=== PATIENT | female | born 1980 | race Hispanic/Latino ===

== ENCOUNTER 2016-12-31 08:59 | Emergency (ER) | payer SELFPAY ==
[2016-12-31 10:19] LABS: Hematocrit 38.3 % (36.0-47.0); Red Blood Cell (RBC) Count 4.82 mill/uL (4.20-5.40); White Blood Cell (WBC) Count 9.4 thou/uL (4.8-10.8)
[2016-12-31 10:20] LABS: %Lymphocytes 8.4 % (21.0-51.0); %Monocytes 4.5 % (0.0-10.0); Mean Platelet Volume 7.9 fL (7.4-10.4)
[2016-12-31 10:21] LABS: %Basophils 0.4 % (0.0-1.0); %Eosinophils 0.2 % (0.0-10.0)
[2016-12-31 10:22] LABS: #Lymphocytes 0.8 thou/uL (1.20-3.40); #Neutrophils 8.2 thou/uL (1.40-6.50)
[2016-12-31 10:23] LABS: #Eosinphils 0.2 thou/uL (0.0-0.7); #Monocytes 0.4 thou/uL (0.11-0.59)
[2016-12-31 10:33] LABS: AST (SGOT) 24 U/L (5-34); Alkaline Phosphatase 87 U/L (40-150); BUN (Urea Nitrogen) 8 mg/dL (7.0-18.7); Bilirubin, Total 0.5 mg/dL (0.2-1.2); Calc. Creatinine Clearance 0 mL/min (70-130); Calcium 8.7 mg/dL (7.8-10.44); Carbon Dioxide 18 mmol/L (22-29); Chloride 108 mmol/L (98-107); Estimated GFR-MDRD 72; Globulin 3.2 g/dL (2.4-3.5)
[2016-12-31 10:34] LABS: ALT (SGPT) 35 U/L (8-55); Lipase 24 U/L (8-78)
[2016-12-31 10:35] LABS: Anion Gap 14 mmol/L (10-20)
[2016-12-31 10:41] LABS: Band 10 % (5-11); Neutrophil 74 % (42-75)
== END 2016-12-31 14:33 | disposition home or self-care (01) ==
LOC: SCSER 08:59
DX: A04.5 Campylobacter enteritis (principal); E03.9 Hypothyroidism, unspecified; I10 Essential (primary) hypertension; F41.9 Anxiety disorder, unspecified; F32.9 Major depressive disorder, single episode, unspecified; F17.210 Nicotine dependence, cigarettes, uncomplicated
CPT/HCPCS: 36415; 80053; 83630; 83690; 85025; 87015; 87045; 87046; 87328; 87329; 87449; 87899; 96360; 96361

== ENCOUNTER 2017-12-05 19:32 | Observation (INO) | payer SELFPAY ==
[2017-12-05 20:04] LABS: #Eosinphils 0.2 thou/uL (0.0-0.7); #Lymphocytes 1.4 thou/uL (1.20-3.40); #Monocytes 0.4 thou/uL (0.11-0.59); #Neutrophils 3.7 thou/uL (1.40-6.50); %Basophils 0.8 % (0.0-1.0); %Eosinophils 3.1 % (0.0-10.0); %Monocytes 7.1 % (0.0-10.0); Hemoglobin 12.8 g/dL (12.0-16.0); Mean Corpuscular HGB CONC 32.7 g/dL (32.0-36.0); Mean Corpuscular Hemoglobin 25.4 pg (27.0-31.0); Mean Corpuscular Volume 77.7 fL (78.0-98.0); Mean Platelet Volume 9.6 fL (7.4-10.4); Platelet Count 234 thou/uL (130-400); RBC Distribution Width 12.6 % (11.5-14.5); Red Blood Cell (RBC) Count 5.03 mill/uL (4.20-5.40); White Blood Cell (WBC) Count 5.7 thou/uL (4.8-10.8)
[2017-12-05 20:20] LABS: ALT (SGPT) 123 U/L (8-55); AST (SGOT) 110 U/L (5-34); Albumin 4.3 g/dL (3.5-5.0); Alkaline Phosphatase 150 U/L (40-150); Anion Gap 18 mmol/L (10-20); BUN (Urea Nitrogen) 13 mg/dL (7.0-18.7); Bilirubin, Total 0.4 mg/dL (0.2-1.2); Calc. Creatinine Clearance 0 mL/min (70-130); Calcium 9.9 mg/dL (7.8-10.44); Carbon Dioxide 18 mmol/L (22-29); Chloride 102 mmol/L (98-107); Estimated GFR-MDRD 74; Globulin 3.3 g/dL (2.4-3.5); Glucose 490 mg/dL (70-105); Potassium 4.1 mmol/L (3.5-5.1); Protein, Total 7.6 g/dL (6.0-8.3); Sodium 134 mmol/L (136-145)
[2017-12-05 20:21] LABS: CKMB 0.7 ng/mL (0-6.6); Troponin I Less than 0.010 ng/mL (< 0.028)
--- NOTE | 2017-12-05 20:52 | RAD ---
PA AND LATERAL CHEST: History: Chest pain. FINDINGS: Heart size and mediastinum are within normal limits. The lungs are clear of infiltrates. There are ar thritic changes of the spine. IMPRESSION: No active intrathoracic disease. POS: [facility]
[2017-12-05 20:53] LABS: Bilirubin Negative (Negative); Blood, Urine Trace (Negative); Clarity Clear (Clear); Glucose, Urine (Dipstick) >=1000 mg/dL (Negative); Leukocyte Negative (Negative); Nitrite Negative (Negative); Protein, Urine (Dipstick) Negative (Neg-Trace); Urobilinogen 0.2 mg/dL (0.2-1.0); pH, Urine 5.5 (5.0-9.0)
[2017-12-05 20:55] LABS: RBC/HPF 0-3 HPF (0-3); Squamous Epithelial 0-3 HPF (0-3); Yeast-All Forms 2+ HPF (None Seen)
[2017-12-05 20:56] LABS: Bacteria/HPF 1+ HPF (None Seen)
[2017-12-05] MEDS ORDERED: Aspirin 325 MG TAB ONE (21:43)
[2017-12-05] MEDS ORDERED: Fluconazole 100 MG TAB ONE (21:43)
[2017-12-05] MEDS ORDERED: hydrALAZINE 20 MG/ML VIAL ONE (21:43)
[2017-12-05] MEDS ORDERED: Insulin Regular 300 UNITS/3 ML VIAL ONE (22:02)
[2017-12-05 23:29] LABS: Troponin I Less than 0.010 ng/mL (< 0.028)
[2017-12-05] MEDS ORDERED: Ondansetron ODT 4 MG TAB SL PRN (23:48)
[2017-12-05] MEDS ORDERED: Ondansetron PF 4 MG/2 ML Vial IVP PRN (23:48)
[2017-12-05] MEDS ORDERED: Acetaminophen 325 MG TAB PO PRN (23:48)
[2017-12-06 00:15] VITALS: BMI 48.1
[2017-12-06 02:33] LABS: Troponin I Less than 0.010 ng/mL (< 0.028)
[2017-12-06] MEDS ORDERED: Zolpidem Tartrate 5 MG TAB PO PRN (07:02)
[2017-12-06] MEDS ORDERED: Calcium Carbonate 500 MG ChewTAB PO PRN (07:02)
[2017-12-06] MEDS ORDERED: Loratadine 10 MG TAB PO PRN (07:02)
[2017-12-06] MEDS ORDERED: Diabetic Tussin 200 MG/10 ML UDCUP PO PRN (07:02)
[2017-12-06] MEDS ORDERED: Ondansetron PF 4 MG/2 ML Vial IVP PRN (07:02)
[2017-12-06] MEDS ORDERED: Insulin Regular 300 UNITS/3 ML VIAL SC PRN (07:02)
[2017-12-06] MEDS ORDERED: Senokot 8.6 MG TAB PO PRN (07:02)
[2017-12-06] MEDS ORDERED: Chloraseptic Spray 180 ml Bottle PO PRN (07:02)
[2017-12-06] MEDS ORDERED: Sodium Chloride 0.65% Nasal 44 ML BOT EA NARE PRN (07:02)
[2017-12-06] MEDS ORDERED: HYDROcodone/Acetaminophen 5/325 mg Tablet PO PRN (07:02)
[2017-12-06] MEDS ORDERED: Artificial Tears 18 DROP/0.9 ML EA EYE PRN (07:02)
[2017-12-06] MEDS ORDERED: Nitroglycerin 0.4 MG TAB (25 Tab Bottle) PO PRN (07:02)
[2017-12-06] MEDS ORDERED: Milk Of Magnesia 30 ML UDCUP PO PRN (07:02)
[2017-12-06] MEDS ORDERED: Loperamide HCl 2 MG CAP PO PRN (07:02)
[2017-12-06] MEDS ORDERED: Dextrose 50% Abboject 50 ML SYRINGE SLOW IVP PRN (07:02)
[2017-12-06] MEDS ORDERED: Ondansetron ODT 4 MG TAB PO PRN (07:02)
[2017-12-06] MEDS ORDERED: Eucerin (Mineral Oil/Petrolatum,White) 30 gm Jar TOP PRN (07:02)
[2017-12-06] MEDS ORDERED: Dextrose 5% in Water 1,000 ML IV PRN (07:02)
[2017-12-06] MEDS ORDERED: hydrALAZINE 20 MG/ML VIAL SLOW IVP PRN (07:02)
[2017-12-06 07:42] LABS: Hemoglobin A1c 10.8 % (4.0-6.0)
[2017-12-06 07:58] LABS: ALT (SGPT) 101 U/L (8-55); AST (SGOT) 88 U/L (5-34); Albumin 3.9 g/dL (3.5-5.0); Alkaline Phosphatase 132 U/L (40-150); Anion Gap 11 mmol/L (10-20); BUN (Urea Nitrogen) 8 mg/dL (7.0-18.7); Bilirubin, Total 0.6 mg/dL (0.2-1.2); Calc. Creatinine Clearance 233 mL/min (70-130); Calcium 8.5 mg/dL (7.8-10.44); Carbon Dioxide 21 mmol/L (22-29); Cardiac Risk 4.9 (Less than 4.5); Chloride 106 mmol/L (98-107); Cholesterol 102 mg/dl (< 200 Desired); Estimated GFR-MDRD Greater than 90; Globulin 2.8 g/dL (2.4-3.5); Glucose 309 mg/dL (70-105); HDL Cholesterol 21 mg/dL (>60 Neg Risk); LDL Cholesterol, Calculated 58 mg/dL; Protein, Total 6.7 g/dL (6.0-8.3); Sodium 134 mmol/L (136-145); Triglycerides 115 mg/dL (Less than 150)
[2017-12-06 08:23] LABS: HBCM Index 0.11 S/CO (0-0.79); HBSAg Index 0.24 S/CO (0-0.99); Hep A IgM AB Non-Reactive (NonReactive); Hep A IgM S/CO 0.07 S/CO (0-0.79); Hep B Surf Ag Non-Reactive S/CO (NonReactive); Hep C IgG Ab Non-Reactive (NonReactive); Hepatitis B Core IGM Abs Non-Reactive (NonReactive)
[2017-12-06] MEDS: Aspirin 325 MG TAB PO SCH (08:28)
[2017-12-06] MEDS: glyBURIDE 5 MG TAB PO SCH (08:28)
[2017-12-06] MEDS: Acetaminophen 325 MG TAB PO PRN ×2 (08:28→16:32)
[2017-12-06] MEDS: Famotidine 20 MG TAB PO SCH ×2 (08:28→19:59)
--- NOTE | 2017-12-06 11:42 | HP ---
PRIMARY CARE PHYSICIAN: [facility]. REASON FOR ADMISSION: Chest pain, new onset diabetes type 2. HISTORY OF PRESENT ILLNESS: A 37-year-old female who has morbid obesity, hypertension, and hypothyroidism. She is not on any specific medication at this point. She follows local [facility] once a year. She was told that her blood pressure was going lower side and that is why she was sto pped blood pressure medication and her thyroid was normal and that is why she was also told to stop t hyroid medication. She does not have any previous history of diabetes. She does have family history of diabetes. She was having polyuria, polydipsia. For the last 1 week, she was experiencing recurr ent chest pain which was left-sided in location without any relation of food, respiration, or activit y. She denies any associated nausea or vomiting. Her pain was intense last night which was left-yahaira ed and radiated to left arm. She came to the emergency room, she was found with hyperglycemia. She also had abnormal LFTs. She was hypertensive. She was admitted to telemetry floor for observation t o rule out acute coronary syndrome and hyperglycemia management. REVIEW OF SYSTEMS: Please see my HPI for pertinent positive and negative. All other review of syste m reviewed and negative except as mentioned in the HPI. Constitutional: Weight loss or gain, ability to conduct usual activities. Skin: Rash, itching. Eyes: Double vision, pain. ENT/Mouth: Nose bleeding, neck stiffness, pain, tenderness. Cardiovascular: Palpitations, dyspnea on exertion, orthopnea. Respiratory: Shortness of breath, wheezing, cough, hemoptysis, fever or night sweats. Gastrointestinal: Poor appetite, abdominal pain, heartburn, nausea, vomiting, constipation, or diarrhea. Genitourinary: Urgency, frequency, dysuria, nocturia. Musculoskeletal: Pain, swelling. Neurologic/Psychiatric: Anxiety, depression. Allergy/Immunologic: Skin rash, bleeding tendency. PAST MEDICAL HISTORY: No medication noncompliance, hypothyroidism, hypertension, morbid obesity. PAST SURGICAL HISTORY: Tubal ligation. PAST PSYCHIATRIC HISTORY: Anxiety and depression. SOCIAL HISTORY: The patient drinks socially twice a month. She smokes about half pack per day. She abuses marijuana periodically. FAMILY HISTORY: Positive for coronary artery disease to mother who had bypass surgery. Positive for diabetes. ALLERGIES: PENICILLIN. CURRENT HOME MEDICATIONS: The patient is not on any specific medication at this point. EMERGENCY ROOM COURSE: The patient was given Novolin R 7 units, Diflucan 200 mg, hydralazine 100 mg, aspirin 325 mg, and IV fluid. PHYSICAL EXAMINATION: VITAL SIGNS: On arrival, blood pressure 172/106, pulse 95, respiratory rate 18, temperature 97.9, sa turation 98% on room air, weight 124 kilograms. GENERAL: The patient is currently alert, oriented, no acute distress. HEAD: Normocephalic, atraumatic. EYES: Pupils round, reactive to light. Extraocular muscle intact. ENT: Oropharynx within normal limits. Moist mucous membranes, no oral lesion, no pharyngeal erythem a, no exudate. NECK: Supple, no JVD, no thyromegaly, no carotid bruit. LUNGS: Clear to auscultation without any rhonchi or rales. CARDIAC: S1, S2 regular without any murmur. ABDOMEN: Morbid obesity limiting examination, but no peritoneal sign, no guarding, no rigidity, no r ebound, no suprapubic tenderness. BACK: Unremarkable, no CVA tenderness. EXTREMITIES: Upper extremity: Passive movement of all joints are normal. Lower extremities: No ed sonido. Good distal pulsation. SKIN: No skin rash. HEMATOLOGICAL: No lymphadenopathy. NEUROLOGIC: Nonfocal examination. SIGNIFICANT LABORATORY DATA: EKG showing normal sinus rhythm, nonspecific ST-T changes. CBC: WBC 5 .7, hemoglobin 12.8, platelets 234. BMP: Sodium 134, potassium 4.1, chloride 102, carbon dioxide 18 , BUN 13, creatinine 0.86, glucose 490, calcium 9.9. LFT: AST 110, ALT 123, alkaline phosphatase wa s 150, albumin 4.3. Cardiac enzymes negative x3. Hemoglobin A1c 10.8. Lipid profile: Triglyceride 115, cholesterol 102, LDL 58, HDL 21. TSH 5.24. Urinalysis: Glucosuria, ketonuria, 2+ yeast and 1 + bacteria. Hepatitis profile negative. ASSESSMENT AND PLAN: 1. Chest pain. The patient's chest pain description is atypical. She has various risk factors for coronary artery disease including new onset diabetes, untreated hypertension, morbid obesity, and fam amalia history as well as tobacco abuse disorder. Cardiac enzymes negative. EKG is nonspecific. The p atient will need more investigation for risk stratification and that is why we will do exercise Cardi olite stress test. We will continue the aspirin 325 mg p.o. daily. 2. New onset diabetes type 2. We will start metformin 1000 mg twice daily, glyburide 5 mg p.o. jewels y. Diabetic diet education will be given. Dietitian will be consulted. 3. Urinary tract infection with candiduria. We will continue Diflucan 100 mg p.o. daily. We will f ollow up on urine culture result. 4. Hypertension. We will start lisinopril 10 mg p.o. daily. 5. Morbid obesity with BMI 48. Dietary education given, weight loss education given. Healthy lifes tyle measures discussed with the patient. 6. Abnormal liver function tests, likely due to fatty liver. Hepatitis profile is negative. 7. Hypothyroidism. We will start Synthroid 25 mcg p.o. daily. 8. Deep venous thrombosis prophylaxis not needed because we are expecting discharge in 24-48 hours. 9. Gastrointestinal prophylaxis, Pepcid 20 mg p.o. b.i.d. 10. Code status: The patient is FULL CODE. 11. Tobacco abuse disorder. Smoking cessation counseling given. Healthy lifestyle measures discuss ed with the patient. Disposition plan based on clinical course, likely within 24 hours. Plan of care discussed with the p atient and family member at bedside.
[2017-12-06] MEDS ORDERED: ADENOSINE 60 MG/20 ML VIAL ONE (12:14)
[2017-12-06] MEDS: metFORMIN 500 MG TAB PO SCH (16:28)
[2017-12-07] MEDS: Levothyroxine Sodium 25 MCG TAB PO SCH (05:49)
[2017-12-07] MEDS: Insulin Regular 300 UNITS/3 ML VIAL SC PRN ×3 (05:50→16:36)
[2017-12-07] MEDS: glyBURIDE 5 MG TAB PO SCH (09:53)
[2017-12-07] MEDS: Fluconazole 100 MG TAB PO SCH (09:53)
[2017-12-07] MEDS: Aspirin 325 MG TAB PO SCH (09:53)
[2017-12-07] MEDS: metFORMIN 500 MG TAB PO SCH (09:53)
[2017-12-07] MEDS: Lisinopril 10 MG TAB PO SCH (09:54)
[2017-12-07] MEDS: Famotidine 20 MG TAB PO SCH ×2 (09:54→20:52)
--- NOTE | 2017-12-07 10:17 | NM ---
NUCLEAR MEDICINE CARDIAC STRESS TEST WITH EJECTION FRACTION: HISTORY: Chest pain. Hypertension. Coronary artery disease. COMPARISON: None. TECHNIQUE: Stress and rest were performed after the intravenous administration of 30 and 33 millicuries of techn etium 99m sestamibi. FINDINGS: There is low grade lateral wall ischemia. No dyskinesia. Calculated ejection fraction is 60%. IMPRESSION: 1. Low grade lateral wall ischemia. 2. Ejection fraction 60%. POS: [facility]
--- NOTE | 2017-12-07 10:31 | PDOC.PN ---
- Subjective Encounter Start Date: 12/07/17 Encounter Start Time: 07:40 -: old records requested/rev Patient seen and examined. No new complaints. No overnight events - Objective Resuscitation Status: Resuscitation Status FULL:Full Resuscitation MAR Reviewed: Yes Vital Signs & Weight: Vital Signs (12 hours) Temp Pulse Resp BP Pulse Ox 12/07/17 09:05 98.4 F 88 20 169/107 H 97 12/07/17 02:52 98.3 F 80 20 185/103 H 97 Weight Weight 305 lb 3.2 oz I&O: 12/06/17 12/07/17 12/08/17 06:59 06:59 06:59 Intake Total 1412 Balance 1412 Result Diagrams: 12/05/17 19:57 12/06/17 07:28 Additional Labs: Accuchecks 12/07/17 12/06/17 12/06/17 05:44 20:16 16:35 POC Glucose 281 H 269 H 307 H 12/06/17 12:00 POC Glucose 207 H Radiology Reviewed by me: Yes (stress test is abnormal) EKG Reviewed by me: Yes (nsr) Phys Exam - Physical Examination Constitutional: NAD HEENT: PERRLA, moist MMs, sclera anicteric Neck: no JVD, supple Respiratory: no wheezing, no rales, no rhonchi Cardiovascular: RRR, no significant murmur, no rub Gastrointestinal: soft, non-tender, no distention, positive bowel sounds Musculoskeletal: no edema, pulses present Neurological: non-focal, normal sensation, moves all 4 limbs Lymphatic: no nodes Psychiatric: normal affect, A&O x 3 Skin: no rash, normal turgor Dx/Plan (1) Chest pain Code(s): R07.9 - CHEST PAIN, UNSPECIFIED Status: Acute (2) Abnormal stress test Status: Acute (3) New onset type 2 diabetes mellitus Code(s): E11.9 - TYPE 2 DIABETES MELLITUS WITHOUT COMPLICATIONS Status: Acute (4) Transaminitis Code(s): R74.0 - NONSPEC ELEV OF LEVELS OF TRANSAMNS & LACTIC ACID DEHYDRGNSE Status: Acute (5) Hypertension Code(s): I10 - ESSENTIAL (PRIMARY) HYPERTENSION Status: Chronic (6) Hypothyroidism Code(s): E03.9 - HYPOTHYROIDISM, UNSPECIFIED Status: Chronic (7) Morbid obesity with BMI of 45.0-49.9, adult Code(s): E66.01 - MORBID (SEVERE) OBESITY DUE TO EXCESS CALORIES; Z68.42 - BODY MASS INDEX (BMI) 45.0-49.9, ADULT Status: Chronic - Plan cont current plan of care, plan discussed w/ family * cardiology will be consulted for abnormal stress test * medication reviewed as below * symptomatic treatment * discussed with family and pt about test result. * change glyburide 5 mg po bid Review of Systems - Review of Systems ENT: negative: Ear Pain, Ear Discharge, Nose Pain, Nose Discharge, Nose Congestion, Mouth Pain, Mouth Swelling, Throat Pain, Throat Swelling, Other Respiratory: negative: Cough, Dry, Shortness of Breath, Hemoptysis, SOB with Excertion, Pleuritic Pain, Sputum, Wheezing Cardiovascular: negative: chest pain, palpitations, orthopnea, paroxysmal nocturnal dyspnea, edema, light headedness, other Gastrointestinal: negative: Nausea, Vomiting, Abdominal Pain, Diarrhea, Constipation, Melena, Hematochezia, Other Genitourinary: negative: Dysuria, Frequency, Incontinence, Hematuria, Retention , Other Musculoskeletal: negative: Neck Pain, Shoulder Pain, Arm Pain, Back Pain, Hand Pain, Leg Pain, Foot Pain, Other Skin: negative: Rash, Lesions, Humble, Bruising, Other - Medications/Allergies Allergies/Adverse Reactions: Allergies Allergy/AdvReac Type Severity Reaction Status Date / Time Penicillins AdvReac Mild Rash Verified 12/05/17 23:52 Medications: Current Medications Acetaminophen (Tylenol) 650 mg PO Q4H PRN PRN Reason: Headache/Fever or Mild Pain Last Admin: 12/06/17 16:32 Dose: 650 mg Hydrocodone Bitart/Acetaminophen ([place] 5/325) 1 tab PO Q4H PRN PRN Reason: Moderate Pain (4-6) Artificial Tears (Tears Naturale) 0 drop EA EYE PRN PRN PRN Reason: Dry Eyes Aspirin (Aspirin) 325 mg PO DAILY [facility] Last Admin: 12/07/17 09:53 Dose: 325 mg Calcium Carbonate (Tums) 1,000 mg PO Q4H PRN PRN Reason: Heartburn or Indigestion Dextrose/Water (Dextrose 50%) 25 gm SLOW IVP PRN PRN PRN Reason: Hypoglycemia Famotidine (Pepcid) 20 mg PO BID [facility] Last Admin: 12/07/17 09:54 Dose: 20 mg Fluconazole (Diflucan) 100 mg PO DAILY [facility] Last Admin: 12/07/17 09:53 Dose: 100 mg Glucagon (Glucagon) 1 mg IM PRN PRN PRN Reason: Hypoglycemia Glyburide (Diabeta) 5 mg PO QAM[facility] Last Admin: 12/07/17 09:53 Dose: 5 mg Guaifenesin (Robitussin Sf) 200 mg PO Q4H PRN PRN Reason: Cough Hydralazine HCl (Apresoline) 10 mg SLOW IVP Q4H PRN PRN Reason: Systolic BP > 180 Dextrose/Water (D5w) 1,000 mls @ 0 mls/hr IV .Q0M PRN PRN Reason: Hypoglycemia Insulin Human Regular (Humulin R) 0 units SC .AGGRESSIVE SLIDING PRN PRN Reason: Aggressive Sliding Scale Last Admin: 12/07/17 05:50 Dose: 9 unit Insulin Human Regular (Humulin R) 0 units SC .BEDTIME SLIDING SC PRN PRN Reason: Bedtime Correctional Scale Levothyroxine Sodium (Synthroid) 25 mcg PO 0600 [facility] Last Admin: 12/07/17 05:49 Dose: 25 mcg Lisinopril (Zestril) 10 mg PO DAILY [facility] Last Admin: 12/07/17 09:54 Dose: 10 mg Loperamide HCl (Imodium) 2 mg PO PRN PRN PRN Reason: Diarrhea/Loose Stools Loratadine (Claritin) 10 mg PO DAILYPRN PRN PRN Reason: Sinus Symptoms Magnesium Hydroxide (Milk Of Magnesium) 30 ml PO DAILYPRN PRN PRN Reason: Constipation Metformin HCl (Glucophage) 1,000 mg PO BID-[facility] Last Admin: 12/07/17 09:53 Dose: 1,000 mg Mineral Oil/White Petrolatum (Eucerin Cream) 0 gm TOP BIDPRN PRN PRN Reason: Dry Skin Nitroglycerin (Nitrostat) 0.4 mg PO Q5MIN PRN PRN Reason: Chest Pain Ondansetron HCl (Zofran Odt) 4 mg PO Q6H PRN PRN Reason: Nausea/Vomiting Ondansetron HCl (Zofran) 4 mg IVP Q6H PRN PRN Reason: Nausea/Vomiting Phenol (Chloraseptic [place] 180 Ml Bot) 0 ml PO PRN PRN PRN Reason: Sore Throat Senna (Senokot) 2 tab PO HSPRN PRN PRN Reason: Constipation Sodium Chloride ([place] Nasal [place] 0.65%) 0 ml EA NARE QIDPRN PRN PRN Reason: Nasal Congestion Zolpidem Tartrate (Ambien) 5 mg PO HSPRN PRN PRN Reason: Insomnia
[2017-12-07] MEDS ORDERED: Communication Order-Pharmacy FS SCH (12:00)
--- NOTE | 2017-12-07 14:56 | CON ---
DATE OF CONSULTATION: 12/07/2017 The patient is a 37-year-old woman, who presents for evaluation of left-sided chest discomfort. The patient states, approximately a month ago, she had left- sided chest discomfort, which radiated down her left arm and into her neck. This lasted for several hours. She did not seek medical attention. The patient has continued to have left-sided chest discomfort that usually lasts several minutes. The chest discomfort is always left side that occurs with and without exertion. The patient has cardiac risk factors including hypertension and a family history of coronary artery disease. PAST MEDICAL HISTORY: 1. Hypertension. 2. Thyroid disorder. 3. Obesity. PAST SURGICAL HISTORY: Tubal ligation. SOCIAL HISTORY: Former smoker. ALLERGIES: She is allergic to PENICILLIN. FAMILY HISTORY: Positive family history of heart disease. Mother had a myocardial infarction. MEDICATIONS: None. PHYSICAL EXAMINATION: GENERAL: This is an obese woman in no acute distress. VITAL SIGNS: Blood pressure is 169/107. NECK: Showed no jugular venous distention. LUNGS: Clear to auscultation. HEART: Regular rate and rhythm, normal S1 and S2. ABDOMEN: Markedly distended. EXTREMITIES: Show no edema. SKIN: Warm and dry. NEUROLOGIC EXAM: Nonfocal. VASCULAR: Radial pulses 2+. LABORATORY DATA: Sodium 134, potassium 4.0, chloride 106, bicarbonate 21, BUN 8 , creatinine is 0.72, glucose is 309. Her ALT was 101. Her troponin was less than 0.01. Her white blood cell count is 5.7, hemoglobin 12.9 grams, hematocrit 39.1, platelets are 234. Her EKG revealed her to have normal sinus rhythm with moderate voltage criteria for left ventricular hypertrophy. No acute ST-T-wave changes. IMPRESSION: 1. Chest pain suggestive of angina. 2. Abnormal stress test. 3. Hypertension. 4. Elevated liver function tests. 5. Morbid obesity. 6. History of tobacco abuse. This patient presents for evaluation of chest pain. He has an abnormal stress test with possible ischemia. I discussed the option of medical therapy versus an invasive evaluation. The patient strongly prefers to undergo a cardiac catheterization for definitive diagnosis. The risks involving cardiac catheterization include AK, bleeding, stroke, cardiac arrhythmia, and cardiac have been explained to the patient. The patient understands these risks and wishes to proceed. PLAN: Proceed with cardiac catheterization. KATHE
[2017-12-08] MEDS: Lisinopril 10 MG TAB PO SCH (04:03)
[2017-12-08] MEDS: glyBURIDE 5 MG TAB PO SCH (04:04)
[2017-12-08] MEDS: Fluconazole 100 MG TAB PO SCH (04:04)
[2017-12-08] MEDS: Aspirin 325 MG TAB PO SCH (04:04)
[2017-12-08] MEDS: Levothyroxine Sodium 25 MCG TAB PO SCH (04:04)
[2017-12-08] MEDS: Famotidine 20 MG TAB PO SCH (04:04)
[2017-12-08] MEDS ORDERED: glyBURIDE 5 MG TAB PO SCH (09:00)
[2017-12-08] MEDS ORDERED: Lidocaine 1% (PF) 30 ML VIAL ONE (09:08)
[2017-12-08] MEDS ORDERED: Verapamil 5 MG/2 ML VIAL ONE (09:08)
[2017-12-08] MEDS ORDERED: Heparin 10,000 UNITS/1 ML VIAL ONE (09:08)
[2017-12-08] MEDS ORDERED: Nitroglycerin 100MG/250ML BOT 250 ML ONE (09:08)
[2017-12-08] MEDS ORDERED: Midazolam HCl 2 mg/2 ml Vial ONE (09:48)
[2017-12-08] MEDS ORDERED: Fentanyl 100 MCG/2 ML VIAL ONE (09:48)
[2017-12-08] MEDS ORDERED: Iopamidol 370 76% 100 ML VIAL ONE (09:57)
[2017-12-08] MEDS: Insulin Regular 300 UNITS/3 ML VIAL SC PRN (10:50)
[2017-12-08 11:22] VITALS: BP 116/70; TEMP 97.8
--- NOTE | 2017-12-08 11:40 | DIS ---
PRIMARY CARE PHYSICIAN: [facility] call admission. DATE OF ADMISSION: 12/05/2017 DATE OF DISCHARGE: 12/08/2017 DISCHARGE DISPOSITION: Home. PRIMARY DISCHARGE DIAGNOSIS: 1. Chest pain, ruled out acute coronary syndrome. 2. Abnormal stress test, but negative cardiac cath. 3. New onset diabetes type 2. 4. Transaminitis due to fatty liver. SECONDARY DISCHARGE DIAGNOSES: Morbid obesity with a BMI of 47, hypothyroidism, hypertension, medica tion noncompliance. PRIMARY PROCEDURE/OPERATION: Cardiac catheterization which was normal. RADIOLOGICAL INVESTIGATION: Chest x-ray normal. Stress test was reported as reversible ischemia in lateral wall. SIGNIFICANT LABORATORY DATA: WBC 5.7, hemoglobin 12.8, platelet 234. Sodium 134, potassium 4.0, BUN 8, creatinine 0.72, calcium 8.5, AST 88, ALT 101, alkaline phosphatase is 132, albumin 3.9. TSH 5. 24, LDL 58. Hemoglobin A1c 10.8. Urinalysis suggestive of glucosuria. Hepatitis profile negative. Urine culture grew yeast. DISCHARGE MEDICATIONS: Pepcid 20 mg p.o. b.i.d., DiaBeta 5 mg p.o. b.i.d., Synthroid 25 mcg p.o. carolyn ly, Prinzide 10/12.5 one tablet p.o. daily, metformin 1000 mg p.o. b.i.d., Diflucan 100 mg p.o. daily for 7 days. CONTRAINDICATIONS: None. CODE STATUS: FULL CODE. INPATIENT CONSULTANTS: Dr. Okeefe was consulted for abnormal stress test. TEST RESULTS PENDING ON DISCHARGE: None. ALLERGIES: PENICILLIN. DISCHARGE PLAN: Post hospital, the patient will follow up with primary care physician. HOSPITAL COURSE: A 37-year-old female who was having polyuria, polydipsia and she was having recurre nt chest pain. She was admitted by me. Please see my HPI for further detail. In the emergency room , she was found with hyperglycemia. Her hemoglobin A1c turned out to be 10.8. She has new onset of diabetes type 2. She had abnormal LFTs and that is why we checked hepatitis profile that was normal, but this is related with metabolic syndrome from diabetes and morbid obesity and we are suspecting m ostly related with fatty liver. During this admission, we provided diabetes education and dietary ed ucation. Healthy lifestyle measures discussion was given. Weight loss education was given. The pat ient was not taking any medication for hypertension and hypothyroidism and that is why we prescribed all medication to her pharmacy. We started glyburide and metformin for diabetes. The patient needs to follow up with primary care physician for further adjustment of therapy. Diflucan was given for a yeast urinary tract infection. The patient is seen and examined at bedside today. She has negative review of systems. VITAL SIGNS: Today, temperature 97.4, pulse 74, respiratory rate 18, saturation 95%, blood pressure 131/77, weight 300 pounds. GENERAL: The patient is currently alert, awake, no obvious acute distress. HEAD: Normocephalic, atraumatic. EYES: Pupils round, reactive to light. Extraocular muscle intact. ENT: Oropharynx within normal limits. Moist mucous membranes. No oral lesion, no pharyngeal erythe ma, no exudate. NECK: Supple, no JVD, no thyromegaly, no carotid bruit. LUNGS: Clear to auscultation without any rhonchi or rales. CARDIAC: S1, S2 regular without any murmur. ABDOMEN: Soft and benign without any tenderness. EXTREMITIES: No edema. NEUROLOGIC: Nonfocal examination. Overall, this patient is medically stable for discharge. The patient had a stress test done which showed lateral wall ischemia and that is why we consulted Ca rdiology and Cardiology did cardiac cath and her cardiac catheterization was completely normal. The patient is only treated medically with a healthy lifestyle and above-mentioned medications. Medicati on compliance education was given. The patient is medically stable for discharge today.
[2017-12-08] MEDS ORDERED: Acetaminophen/Codeine 30-300mg Tablet PO PRN ×2 (12:00)
[2017-12-08] MEDS ORDERED: Sodium Chloride 0.9% 200 ML IV SCH (12:00)
[2017-12-08] MEDS ORDERED: traMADol HCl 50 MG TAB PO PRN (12:00)
[2017-12-08] MEDS ORDERED: Sodium Chloride 0.9% 1,000 ML IV SCH (12:15)
--- NOTE | 2017-12-13 08:33 | STRESS ---
Acquisition Time: 2017-12-06 12:54:14 Total Exercise Time: 00:04:00 Test Indications: CHEST PAIN Medications: Protocol: ADENOSINE Max HR: 122 BPM 67% of Pred: 182 BPM Max BP: 164/076 mmHG Max Work Load: 1.0 METS RESTING ECG: NORMAL SINUS RHYTHM AT 71 BPM SYMPTOMS: NONE NORMAL BP RESPONSE ECTOPY: NONE ECG STRESS: TRANSIENT T-WAVE INVERSION WITH ADENOSINE INFUSION INTERPRETATION: INDETERMINATE ECG/AWAIT NUCLEAR IMAGES FOR DEFINITIVE DIAGNOSIS Confirmed by ZEFERINO WARREN ([id number]) on 12/13/2017 8:32:24 AM Referred By: MD Jaylene CRENSHAW Confirmed By:ZEFERINO WARREN
== END 2017-12-08 15:34 | disposition home or self-care (01) ==
LOC: SCSER 19:32 → 2SW 21:45
PROVIDERS: ADMIT Hospitalist; ATTEND Hospitalist
PROC: 4A023N7 Measurement of Cardiac Sampling and Pressure, Left Heart, Percutaneous Approach (ICD-10-PCS; principal; 2017-12-08)
PROC: B2111ZZ Fluoroscopy of Multiple Coronary Arteries using Low Osmolar Contrast (ICD-10-PCS; 2017-12-08)
DX: R07.89 Other chest pain (principal); E11.9 Type 2 diabetes mellitus without complications; I10 Essential (primary) hypertension; E03.9 Hypothyroidism, unspecified; N39.0 Urinary tract infection, site not specified; E66.01 Morbid (severe) obesity due to excess calories; R74.0 Nonspecific elevation of levels of transaminase and lactic acid dehydrogenase [LDH]; K76.0 Fatty (change of) liver, not elsewhere classified; Z68.42 Body mass index [BMI] 45.0-49.9, adult; Z88.0 Allergy status to penicillin; Z91.14 Patient's other noncompliance with medication regimen; Z87.891 Personal history of nicotine dependence
CPT/HCPCS: 36415; 36416; 71046; 78452; 80053; 80061; 80074; 81003; 81015; 82553; 83036; 84443; 84484; 85025; 87086; 93005; 93017; 93458; 94760; 96361; 96374; 99152; A9500; C1887; G0378; J0153; J0360; J1642; J1644; J1815; J2001; J2250; J3010

== ENCOUNTER 2018-04-02 16:46 | Observation (INO) | payer SELFPAY ==
[2018-04-02] MEDS ORDERED: Ondansetron PF 4 MG/2 ML Vial ONE (17:29)
[2018-04-02 17:30] LABS: Bilirubin Negative (Negative); Blood, Urine Negative (Negative); Clarity CLEAR (Clear); Glucose, Urine (Dipstick) Negative (Negative); Leukocyte Negative (Negative); Nitrite Negative (Negative); Protein, Urine (Dipstick) Negative (Neg-Trace); Specific Gravity, Urine 1.006 (1.002-1.036)
[2018-04-02 17:39] LABS: Pregnancy Test - Urine (BHCG) Negative (Negative); Pregu Control Background? CLEAR/WHITE (CLR/WHITE); Pregu Control Bar Appear? YES (CONTROL BAR); Specific Gravity 1.006 (1.002-1.036)
[2018-04-02 17:51] LABS: #Eosinphils 0.1 thou/uL (0.0-0.7); #Lymphocytes 0.7 thou/uL (1.20-3.40); #Monocytes 0.2 thou/uL (0.11-0.59); #Neutrophils 2.5 thou/uL (1.40-6.50); %Basophils 0.1 % (0.0-1.0); %Eosinophils 2.3 % (0.0-10.0); %Lymphocytes 20.4 % (21.0-51.0); %Monocytes 6.8 % (0.0-10.0); %Neutrophils 70.4 % (42.0-75.0); Hemoglobin 12.3 g/dL (12.0-16.0); Mean Corpuscular HGB CONC 32.9 g/dL (32.0-36.0); Mean Corpuscular Hemoglobin 26.3 pg (27.0-31.0); Mean Corpuscular Volume 79.9 fL (78.0-98.0); Mean Platelet Volume 7.7 fL (7.4-10.4); Platelet Count 247 thou/uL (130-400); RBC Distribution Width 13.6 % (11.5-14.5); White Blood Cell (WBC) Count 3.5 thou/uL (4.8-10.8)
[2018-04-02 18:07] LABS: ALT (SGPT) 121 U/L (8-55); AST (SGOT) 96 U/L (5-34); Alkaline Phosphatase 64 U/L (40-150); Anion Gap 14 mmol/L (10-20); BUN (Urea Nitrogen) 9 mg/dL (7.0-18.7); Bilirubin, Total 0.5 mg/dL (0.2-1.2); Calc. Creatinine Clearance 0 mL/min (70-130); Carbon Dioxide 19 mmol/L (22-29); Chloride 107 mmol/L (98-107); Estimated GFR-MDRD 88; Globulin 2.9 g/dL (2.4-3.5); Glucose 98 mg/dL (70-105); Lipase 58 U/L (8-78); Protein, Total 6.9 g/dL (6.0-8.3); Sodium 137 mmol/L (136-145)
[2018-04-02 18:17] LABS: Potassium 2.9 mmol/L (3.5-5.1)
[2018-04-02] MEDS ORDERED: Potassium Chloride 20 MEQ TAB ONE (18:43)
[2018-04-02] MEDS ORDERED: NS 0.9% w/ 40 MEQ KCL 1,000 ML IV SCH (21:45)
[2018-04-02 22:21] VITALS: BMI 46.9
[2018-04-03 09:37] LABS: Anion Gap 12 mmol/L (10-20); BUN (Urea Nitrogen) 7 mg/dL (7.0-18.7); Calc. Creatinine Clearance 241 mL/min (70-130); Calcium 8.1 mg/dL (7.8-10.44); Carbon Dioxide 21 mmol/L (22-29); Chloride 108 mmol/L (98-107); Estimated GFR-MDRD Greater than 90; Glucose 171 mg/dL (70-105); Potassium 3.6 mmol/L (3.5-5.1); Sodium 137 mmol/L (136-145)
[2018-04-03 16:15] VITALS: TEMP 98.3
[2018-04-03 16:16] VITALS: BP 109/54
[2018-04-03] MEDS ORDERED: glyBURIDE 5 MG TAB PO SCH (16:30)
[2018-04-03] MEDS ORDERED: metFORMIN 500 MG TAB PO SCH (17:00)
--- NOTE | 2018-04-03 18:02 | HP ---
CHIEF COMPLAINT: Nausea, vomiting, diarrhea. HISTORY OF PRESENT ILLNESS: Ms. Llanes is a 37-year-old female with past medical history of hypertension, diabetes mellitus, has been having nausea and vomiting for two days. The patient is unable to keep anything down. Her sugar was running low as the patient came to the hospital. She claims she had temperature of 101 at home. She did not have any chest pain. No headache. No dizziness. In the ER, the patient was evaluated and found to have severe hypokalemia as well as severe hypoglycemia. . Her glucose was 98. The patient was given KCl supplements, admitted for further evaluation and management. After admission, did not have any nausea or vomiting, she was able to eat very well. She was given IV fluids with KCL and potassium improved to 3.6. The patient has no chest pain. PAST MEDICAL HISTORY: 1. Hypertension. 2. Diabetes mellitus. 3. Hyperlipidemia. 4. Hypothyroidism. 5. Morbid obesity. PAST SURGICAL HISTORY: Nothing significant. CURRENT MEDICATIONS: The patient is on: 1. Levothyroxine 25 mcg daily. 2. Glyburide 5 mg b.i.d. 3. Lisinopril/hydrochlorothiazide 10/12.5 daily. 4. Metformin 1000 b.i.d. ALLERGIES: PENICILLIN. FAMILY HISTORY: Nothing contributory. SOCIAL HISTORY: The patient lives with family. No history of smoking. No history of alcohol intake. REVIEW OF SYSTEMS: Unremarkable except for the nausea and vomiting. PHYSICAL EXAMINATION: GENERAL: The patient is alert, awake, oriented x3. VITAL SIGNS: Temperature 98, pulse 80, respirations 20, blood pressure 113/60. HEENT: Head is normocephalic and atraumatic. Pupils are equal and reactive. Nasopharynx is pale and dry. Hard and soft palate, no lesions. SKIN: Turgor decreased. NECK: Supple. No JVD. LUNGS: Bilateral air entry present. No rales or rhonchi. HEART: S1, S2. Regular. ABDOMEN: Soft. No distention. No tenderness. Normal bowel sounds present. RECTAL: Deferred. CENTRAL NERVOUS SYSTEM: No focal deficits. EXTREMITIES: No edema. LABORATORY DATA: CBC shows WBC 3.5, hemoglobin 12, hematocrit 37, platelets 247. Metabolic panel; sodium 137, potassium 2.9, chloride 107, CO2 19, BUN 9, creatinine 0.7, glucose 98. Urinalysis negative. ASSESSMENT: 1. Severe hypokalemia. 2. Nausea, vomiting, and diarrhea, possibly viral. 3. Hypoglycemia, resolved. 4. Hypertension. 5. Diabetes mellitus. PLAN: 1. Vital sings q.4 hours. 2. Activity as tolerated. 3. Allergies, penicillin. 4. IV fluids, half normal with KCl at 80 mL/hr. 5. ADA diet. 6. We will continue home medications. 7. We will recheck her potassium. Job ID: [id number] [facility]Marc
[2018-04-04] MEDS ORDERED: Levothyroxine Sodium 25 MCG TAB PO SCH (06:00)
[2018-04-04] MEDS ORDERED: Lisinopril/Hydrochlorothiazide 10 mg/12.5 mg Tablet PO SCH (09:00)
--- NOTE | 2018-04-04 21:30 | DIS ---
DATE OF ADMISSION: 04/02/2018 DATE OF DISCHARGE: 04/03/2018 ADMITTING DIAGNOSES: 1. Severe hypokalemia. 2. Hypoglycemia. 3. Hypertension. 4. Diabetes mellitus. 5. Nausea, vomiting, and diarrhea. 6. Hypothyroidism. 7. Morbid obesity. FINAL DIAGNOSES: 1. Nausea, vomiting, diarrhea, resolved. 2. Hypokalemia, corrected. 3. Hypoglycemia, improved. 4. Hypertension. 5. Diabetes mellitus. 6. Hypothyroidism. BRIEF SUMMARY OF HOSPITAL COURSE: Ms. Llanes is a 37-year-old female admitted because of nausea and vomiting, and she was found to have low potassium of 2.7. The patient was given some potassium supplement, started on IV fluids. The following day, her potassium improved to 3.5. Her nausea and vomiting completely resolved. The patient tolerating diet very well. She did not have any chest pain or shortness of breath. No fever. In view of improvement, the patient is being discharged. PHYSICAL EXAMINATION: GENERAL: At the time of discharge, she was stable. VITAL SIGNS: Stable. LUNGS: Clear. HEART: Heart sounds regular. ABDOMEN: Soft, nontender. Bowel sounds present. DISCHARGE MEDICATIONS: 1. Glyburide 5 mg b.i.d. 2. Levothyroxine 25 mcg daily. 3. Lisinopril/hydrochlorothiazide 10/12.5 daily. 4. Metformin 1000 b.i.d. The patient will come for followup in 2 weeks. Job ID: [id number]
== END 2018-04-03 17:25 | disposition home or self-care (01) ==
LOC: ERS 16:46 → 2SW 20:37
PROVIDERS: ADMIT Internal Medicine; ATTEND Internal Medicine
DX: E87.6 Hypokalemia (principal); E11.65 Type 2 diabetes mellitus with hyperglycemia; I10 Essential (primary) hypertension; E03.9 Hypothyroidism, unspecified; E78.5 Hyperlipidemia, unspecified; E66.01 Morbid (severe) obesity due to excess calories; Z68.42 Body mass index [BMI] 45.0-49.9, adult; Z88.0 Allergy status to penicillin; Z79.84 Long term (current) use of oral hypoglycemic drugs; Z79.899 Other long term (current) drug therapy
CPT/HCPCS: 36415; 36416; 80048; 80053; 81003; 81025; 83690; 85025; 87804; 90471; 90686; 90732; 93005; 96361; 96374; G0008; G0009; G0378; J2405; J3480

== ENCOUNTER 2019-03-29 14:44 | Emergency (ER) | payer SELFPAY ==
[2019-03-29 15:22] LABS: #Eosinphils 0.2 thou/uL (0.0-0.7); #Lymphocytes 1.6 thou/uL (1.20-3.40); #Monocytes 0.6 thou/uL (0.11-0.59); #Neutrophils 4.2 thou/uL (1.40-6.50); %Basophils 0.5 % (0.0-1.0); %Eosinophils 3.5 % (0.0-10.0); %Lymphocytes 24.2 % (21.0-51.0); %Monocytes 9.2 % (0.0-10.0); %Neutrophils 62.7 % (42.0-75.0); Hemoglobin 12.5 g/dL (12.0-16.0); Mean Corpuscular HGB CONC 31.3 g/dL (32.0-36.0); Mean Corpuscular Hemoglobin 23.5 pg (27.0-31.0); Mean Corpuscular Volume 75.2 fL (78.0-98.0); Mean Platelet Volume 8.5 fL (7.4-10.4); Platelet Count 289 thou/uL (130-400); RBC Distribution Width 14.4 % (11.5-14.5); Red Blood Cell (RBC) Count 5.32 mill/uL (4.20-5.40); White Blood Cell (WBC) Count 6.7 thou/uL (4.8-10.8)
--- NOTE | 2019-03-29 15:36 | RAD ---
XR Chest 1 View Portable HISTORY: Chest pain and shortness of breath COMPARISON: 12/05/2017 FINDINGS: The heart size is normal. The lungs are well expanded without focal areas of consolidation, pneumothorax or pleural effusions. IMPRESSION: No radiographic evidence of acute cardiopulmonary process.
[2019-03-29 15:50] LABS: ALT (SGPT) 121 U/L (8-55); AST (SGOT) 82 U/L (5-34); Albumin 4.7 g/dL (3.5-5.0); Alkaline Phosphatase 75 U/L (40-110); Anion Gap 13 mmol/L (10-20); BUN (Urea Nitrogen) 15 mg/dL (7.0-18.7); Bilirubin, Total 0.3 mg/dL (0.2-1.2); CK (CPK) 75 U/L (29-168); Calc. Creatinine Clearance 0 mL/min (70-130); Calcium 9.7 mg/dL (7.8-10.44); Carbon Dioxide 23 mmol/L (22-29); Chloride 104 mmol/L (98-107); Estimated GFR-MDRD 83; Globulin 3.1 g/dL (2.4-3.5); Glucose 116 mg/dL (70-105); Lipase 65 U/L (8-78); Potassium 4.1 mmol/L (3.5-5.1); Protein, Total 7.8 g/dL (6.0-8.3); Sodium 136 mmol/L (136-145)
== END 2019-03-29 16:25 | disposition home or self-care (01) ==
LOC: ERS 14:44
DX: R07.89 Other chest pain (principal); F41.9 Anxiety disorder, unspecified; F32.9 Major depressive disorder, single episode, unspecified; E11.9 Type 2 diabetes mellitus without complications; E03.9 Hypothyroidism, unspecified; I10 Essential (primary) hypertension
CPT/HCPCS: 71045; 80053; 82550; 83690; 84484; 85025; 93005; 94760